=== PATIENT | female | born 1995 | race Caucasian/White ===

== ENCOUNTER → 2016-04-26 | Outpatient (REF) | payer OTHER | LOC: M SFHCLERA 18:31 | PROVIDERS: ATTEND Physician Assistant | DX: N39.0 Urinary tract infection, site not specified (principal) ==

== ENCOUNTER 2016-08-15 16:51 | Outpatient (CLI) | payer OTHER ==
[~2016-08-15] VITALS: Ht 167.6 cm; Wt 73.0 kg
[2016-08-15 17:16] VITALS: BP 124/75
[2016-08-15 17:56] VITALS: BP 115/66
== END 2016-08-15 18:10 | disposition home or self-care (01) ==
LOC: M LDO 16:51
PROVIDERS: ATTEND Advanced Practice Midwife
DX: O36.8130 Decreased fetal movements, third trimester, not applicable or unspecified (principal); Z3A.39 39 weeks gestation of pregnancy

== ENCOUNTER 2016-08-16 19:22 | Outpatient (CLI) | payer OTHER ==
[2016-08-16] MEDS ORDERED: LR 1,000 ML IV SCH (20:12)
[2016-08-16] MEDS ORDERED: LACTATED RINGER'S 1000 ML IV STA (20:12)
[2016-08-16] MEDS ORDERED: ONDANSETRON 4MG/2ML VIAL (J2405) IV ONE (21:00)
--- NOTE | 2016-08-17 00:14 | IPNPDOC ---
Text Note Date of Service The patient was seen on 08/17/16. NOTE L&D Triage Note Subjective: Amanda is a 21yo with a [place] IUP at approx. 39wk who presents to triage complaining of nausea/vomiting and diarrhea- not being able to keep down rufina leroy, crackers, pedialyte or water over the last 24hr. She states her had similar illness a couple days ago. She speculates they may have got a bug at an event recently where they ate [place] sausages. No fevers/chills. Has ctx that are mild, no vaginal bleeding or LOF. Feels good movement. Objective: Vitals wnl NST: Moderate variability, pos accels, neg decels. Cat I FHRT [place]: ctx q5-7min Physical Exam- General: WDWN gravid female in NAD Mental : AAOx3 Abdominal: Gravid abdomen without guarding or tenderness. 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 39wk c/ o nausea/vomiting/diarrhea with clinical presentation suggestive of gastroenteritis, likely of viral origin. Vitals stable without abnormalities on exam. Cat I FHRT with ctx q5-7min, SCE 1-2/25/-2, posterior/soft. Plan: -Patient given 1L LR IVF in triage -4mg Zofran IV in triage, pt reports feeling much better -encouraged continued hydration -F/U at next scheduled OB appointment on Monday -If continued n/v tomorrow, instructed to call clinic for Rx for zofran -Return to triage if vaginal lof/bleeding, reduced movement, increasing frequency/painful ctxs, fevers/chills, unremitting n/v/d -[facility] reviewed Dr. Casey Rankin MD NelsonCASEY Cabrera MD August 17, 2016 00:14
== END 2016-08-16 23:45 | disposition home or self-care (01) ==
LOC: M LDO 19:22
PROVIDERS: ATTEND Obstetrics & Gynecology
DX: O99.89 Other specified diseases and conditions complicating pregnancy, childbirth and the puerperium (principal); R11.2 Nausea with vomiting, unspecified; R19.7 Diarrhea, unspecified; Z20.89 Contact with and (suspected) exposure to other communicable diseases; Z3A.39 39 weeks gestation of pregnancy
CPT/HCPCS: 59025; 81001; 96374; J2405

== ENCOUNTER 2016-08-18 20:13 | Inpatient (IN) | payer OTHER ==
[~2016-08-18] VITALS: Ht 167.6 cm; Wt 56.0 kg
[2016-08-18] MEDS ORDERED: LACTATED RINGER'S 1000 ML IV STA (20:48)
[2016-08-18] MEDS ORDERED: LR 1,000 ML IV SCH (20:48)
[2016-08-18 21:17] LABS: MEAN CORPUSCULAR HEMOGLOBIN 30.3 pg (27.0-33.0); MEAN CORPUSCULAR VOLUME 89.1 fl (80.0-96.0); RED CELL DISTRIBUTION WIDTH 13.3 % (11.5-14.5); WHITE BLOOD COUNT 7.2 K/mm3 (4.0-10.0)
[2016-08-18] MEDS ORDERED: FENTANYL 2MCG/ML ROPIVACAINE 0.2% IN 0.9% NACL 200ML IVBAG As Ordered ONE (21:39)
[2016-08-18] MEDS ORDERED: EPIDURAL COMMENT XX SCH (22:34)
[2016-08-18] MEDS ORDERED: diphenhydrAMINE INJ 50MG/ML VIAL (J1200) IV PRN (22:34)
[2016-08-18] MEDS ORDERED: FENTANYL/ROPIVACAINE/NACL BAG 200 ML EPIDURAL SCH (22:34)
[2016-08-18] MEDS ORDERED: LACTATED RINGER'S 1000 ML IV PRN (22:34)
[2016-08-18] MEDS ORDERED: REFRIGERATOR IV KEYS XX PRN (22:34)
[2016-08-18] MEDS ORDERED: ONDANSETRON 4MG/2ML VIAL (J2405) IV PRN ×2 (22:34→23:45)
[2016-08-18] MEDS ORDERED: ePHEDrine SULFATE 25 MG/5 ML(5MG/ML) SYRINGE IV PRN (22:34)
[2016-08-18] MEDS ORDERED: EPIDURAL/PCA KEYS XX PRN (22:34)
[2016-08-18] MEDS ORDERED: NALOXONE INJ 0.4 MG/1 ML VIAL (J2310) IV PRN (22:34)
[2016-08-18] MEDS ORDERED: RHOGAM 300 MCG (1500 IU) INJ (J2790) IM SCH (23:45)
[2016-08-18] MEDS ORDERED: DIBUCAINE 1% OINTMENT 30GM TOP PRN (23:45)
[2016-08-18] MEDS ORDERED: METHYLERGONOVINE MALEATE 0.2 MG/ML VIAL (J2210) IM PRN (23:45)
[2016-08-18] MEDS ORDERED: PROMETHAZINE 25 MG TAB PO PRN (23:45)
[2016-08-18] MEDS ORDERED: MEASLES,MUMPS,RUBELLA VACCINE INJ (MMR-II) (90707) SC SCH (23:45)
[2016-08-18] MEDS ORDERED: OXYTOCIN INJ 10 UNITS/ML VIAL (J2590) IV ONE (23:45)
[2016-08-19 00:44] VITALS: BP 129/71
[2016-08-19] MEDS: IBUPROFEN 800 MG TAB PO PRN ×2 (01:36→14:21)
[2016-08-19 05:40] VITALS: BP 136/76
[2016-08-19] MEDS: DOCUSATE SODIUM 100 MG CAP PO SCH ×2 (08:57→21:46)
[2016-08-19] MEDS: PRENATAL VITAMIN TAB PO SCH (08:57)
[2016-08-19] MEDS: ACETAMINOPHEN 500 MG TAB PO PRN ×2 (08:58→18:51)
[2016-08-19 18:45] VITALS: BP 137/97
[2016-08-20 05:51] VITALS: BP 125/76
[2016-08-20] MEDS ORDERED: COLA100C3 PO (08:35)
[2016-08-20] MEDS ORDERED: STUACAP PO (08:36)
[2016-08-20] MEDS ORDERED: ACET50TA PO (08:37)
[2016-08-20] MEDS ORDERED: IBUP-1114 PO (08:39)
[2016-08-20] MEDS: PRENATAL VITAMIN TAB PO SCH (09:00)
[2016-08-20] MEDS: DOCUSATE SODIUM 100 MG CAP PO SCH (09:00)
== END 2016-08-20 10:45 | disposition home or self-care (01) | DRG 775 ==
LOC: M LDO 20:13 → M LDI 20:23 → M OBS 08-19 00:33
PROVIDERS: ADMIT Obstetrics & Gynecology; ATTEND Obstetrics & Gynecology
PROC: 10E0XZZ Delivery of Products of Conception, External Approach (ICD-10-PCS; principal; 2016-08-18)
DX: O48.0 Post-term pregnancy (principal); O77.0 Labor and delivery complicated by meconium in amniotic fluid; Z3A.40 40 weeks gestation of pregnancy; Z37.0 Single live birth

== ENCOUNTER 2016-12-21 09:02 | Day surgery (SDC) | payer OTHER ==
[~2016-12-21] VITALS: Ht 167.6 cm; Wt 62.1 kg
[~2016-12-21 09:02] MED LIST: ACET50TA PO; COLA100C5 PO; IBUP-1114 PO; LR 1,000 ML IV ONE; MULT1TAB10 PO; STUACAP PO; WELLTAB38 PO
[2016-12-21 09:48] LABS: MEAN CORPUSCULAR HEMOGLOBIN 31.4 pg (27.0-33.0); MEAN CORPUSCULAR HGB CONC 34.9 g/dl (32.0-36.5); MEAN CORPUSCULAR VOLUME 89.8 fl (80.0-96.0); RED CELL DISTRIBUTION WIDTH 12.4 % (11.5-14.5); WHITE BLOOD COUNT 8.3 K/mm3 (4.0-10.0)
[2016-12-21 10:06] LABS: CONTROL LINE HCG INT CTR LINE PRESENT
[2016-12-21] MEDS ORDERED: dexameTHASONE 4 MG/ML 1ML VIAL (J1100) As Ordered ONE (11:02)
[2016-12-21] MEDS ORDERED: MIDAZOLAM INJ 2 MG/2 ML VIAL (J2250) As Ordered ONE (11:02)
[2016-12-21] MEDS ORDERED: ROCURONIUM BROMIDE 50 MG/5 ML VIAL/SYRINGE As Ordered ONE (11:02)
[2016-12-21] MEDS ORDERED: LIDOCAINE 2% INJ 100 MG/5 ML SDV (FOR ANES.) As Ordered ONE (11:02)
[2016-12-21] MEDS ORDERED: ONDANSETRON 4MG/2ML VIAL (J2405) As Ordered ONE (11:02)
[2016-12-21] MEDS ORDERED: fentaNYL 100 MCG/2 ML INJECTION (J3010) As Ordered ONE ×2 (11:02→12:32)
[2016-12-21] MEDS ORDERED: PROPOFOL 200 MG/20 ML VIAL As Ordered ONE (11:02)
[2016-12-21] MEDS ORDERED: BUPIVACAINE HCL 0.25% 30 ML VIAL As Ordered ONE (11:18)
[2016-12-21] MEDS ORDERED: HYDROmorphone HCL 2 MG/ML 1ML VIAL (J1170) As Ordered ONE (11:48)
[2016-12-21] MEDS ORDERED: KETOROLAC 60 MG/2 ML VIAL (J1885) As Ordered ONE (11:50)
[2016-12-21] MEDS ORDERED: NEOSTIGMINE 1MG/ML 5 ML SYRINGE (J2710) As Ordered ONE (11:56)
[2016-12-21] MEDS ORDERED: GLYCOPYRROLATE INJ 0.2 MG/ML 2 ML VIAL As Ordered ONE (11:56)
[2016-12-21] MEDS ORDERED: NORCO, ANEXSIA 5/325MG TABLET (HYDROcodone/ACETAMINOPHEN) As Ordered ONE (12:32)
[2016-12-21] MEDS: fentaNYL 100 MCG/2 ML INJECTION (J3010) IV PRN ×4 (12:33→13:03)
[2016-12-21] MEDS ORDERED: NORCO, ANEXSIA 5/325MG TABLET (HYDROcodone/ACETAMINOPHEN) PO PRN (12:45)
[2016-12-21] MEDS ORDERED: LR 1,000 ML IV SCH (12:45)
[2016-12-21] MEDS ORDERED: MORPHINE 2 MG/ML 1ML SYRINGE IV PRN (12:45)
[2016-12-21] MEDS ORDERED: ONDANSETRON 4MG/2ML VIAL (J2405) IV PRN ×2 (12:45)
[2016-12-21] MEDS ORDERED: DOCUSATE SODIUM 100 MG CAP PO PRN (12:45)
[2016-12-21] MEDS ORDERED: KETOROLAC 30 MG/ML VIAL (J1885) IV PRN (12:45)
--- NOTE | 2016-12-21 13:34 | RO ---
DATE OF PROCEDURE: 12/21/2016 PREOPERATIVE DIAGNOSIS: Satisfied parity. POSTOPERATIVE DIAGNOSIS: Satisfied parity. PROCEDURE: Laparoscopic Bilateral Salpingectomy SURGEON: Erick Blum MD SHEETER WAXER OPERATOR: Sravani Kendall MD ANESTHESIA: general DUEÑAS Dr. Urf IV FLUIDS: 700 mL isotonic fluid. ESTIMATED BLOOD LOSS: Less than 10 mL. URINE OUTPUT: 700 mL, Oliveira catheter removed at completion of procedure. COMPLICATIONS: None. INDICATIONS FOR THE PROCEDURE: Patient known well to the [facility] service who presents for satisfied parity, had extensively reviewed the risks/benefits/alternatives/indications to permanent sterilization versus contraception verus long acting reversible contraception. Patient continues to desire permanent sterilization. DESCRIPTION OF PROCEDURE: The risks/benefits/alternatives/indications were reviewed with the patient. Informed consent was obtained. Patient was taken to the operating room where after anesthesia was placed in low lithotomy and after anesthesia was performed, the patient was prepped and draped in a normal sterile fashion. A pelvic exam demonstrated 8 week sized mobile uterus with no abnormal adnexal findings. After a time out was performed, a sterile speculum was placed in the patient's vagina. The cervix was visualized. A single tooth tenaculum was used to grasp the anterior lip of the cervix and a Hulka clip was used for uterine manipulation. The single tooth was then removed. After gloves were exchanged, attention was then turned to the patient's abdomen where a 5 mm infraumbilical incision was made without complication. A 5 mm trocar and sleeve were then carefully introduced into the abdominal cavity under direct visualization at a 90 degree angle while tenting up the abdominal wall. Intraperitoneal placement was confirmed and gas tubing was attaching. Pressure at time of entrance was noted to be less than 5 mm of mercury consistent with proper intraperitoneal placement. A pneumoperitoneum was then established with a maximum pressure of 14 mm of mercury. With this established, the camera was then reintroduced into the abdomen and evaluation immediately below the entrance site was noted to be free of injury as well as 360 degree evaluation demonstrated normal appearing gallbladder, liver edge, stomach as well as normal appearing appendix. The pelvis appeared normal in appearance with bilateral normal appearing ovaries, normal appearing uterus as well as fallopian tubes. Two additional 5 mm trocars , one on the left and one in the right lower aspect of the abdomen wall were placed under direct laparoscopic visualization. 0.25% Marcaine plain was utilized, 9 mL total, for local anesthesia for the three spots. Using a blunt grasper and a LigaSure device, the left fallopian tube was followed out to its fimbriated end, and utilizing the LigaSure device to crossclamp, electrocautery from the fimbriated through the mesosalpinx up to the cornua. The fallopian tube was then crossed near the cornua in a routine fashion and once completed was removed through the 5 mm trocar without incident. Identical procedure was performed on the right side in routine fashion. At the conclusion, and after removal of the right fallopian tube, noted normal hemostasis of the surgical sites. The trocars were then removed under direct visualization. The gas was turned off and the camera was removed under direct visualization with removal of as much CO2 as was possible. Reexamination at the conclusion prior to removal of the camera, demonstrated no abnormal findings. The skin incisions were reapproximated with #4-0 Monocryl in a subcuticular fashion and dressed with DERMABOND. The uterine manipulator was then removed with excellent hemostasis. All instruments were removed from the vagina and vaginal sweep performed and confirmed no retained foreign objects in the vagina. At the completion of the case sponge, laps and needle counts were correct times two. The patient tolerated the procedure well and was taken to the postanesthesia care unit (PACU) in stable condition. No Antibiotics were warranted. Ruel Blum OB-[facility]
[2016-12-21 16:05] VITALS: BP 117/76
== END 2016-12-21 16:10 | disposition home or self-care (01) ==
LOC: M SDC 09:02
PROVIDERS: ATTEND Student in an Organized Health Care Education/Training Program
DX: Z30.2 Encounter for sterilization (principal); K21.9 Gastro-esophageal reflux disease without esophagitis; R41.840 Attention and concentration deficit; F41.9 Anxiety disorder, unspecified; F32.9 Major depressive disorder, single episode, unspecified; Z79.899 Other long term (current) drug therapy
CPT/HCPCS: 36415; 58670; 84703; 85027; 86850; 88302; J1100; J1170; J1885; J2250; J2405; J2710; J3010